=== PATIENT | male | born 1965 | race Caucasian/White ===

== ENCOUNTER 2019-01-17 10:04 | Outpatient (REF) | payer BC, SELFPAY ==
[2019-01-17 19:22] LABS: Anion Gap 10.2 mmol/L (3-11); BUN 12 mg/dL (7-18); CO2 26.8 mmol/L (21.0-32.0); CREATININE 1.02 mg/dL (0.70-1.30); Calcium 8.3 mg/dL (8.5-10.1); Calculated LDL 119 mg/dL; Chloride 104 mmol/L (98-107); Cholesterol 197 mg/dL (50-200); Glucose 84 mg/dL (70-100); HDL Cholesterol 50 mg/dL (40-60); Potassium 4.2 mmol/L (3.5-5.1); Sodium 141 mmol/L (136-145); Triglyceride 143 mg/dL (30-150)
[2019-01-20 10:19] LABS: PSA, Screening 0.5 ng/ml (0-3.5)
== END 2019-01-17 10:24 ==
LOC: NCHCN 10:04
PROVIDERS: PCP Family Medicine; Visit Provider Specialist/Technologist Athletic Trainer
DX: Z00.00 Encounter for general adult medical examination without abnormal findings (principal); Z13.228 Encounter for screening for other metabolic disorders; Z13.220 Encounter for screening for lipoid disorders; Z12.5 Encounter for screening for malignant neoplasm of prostate
CPT/HCPCS: 80048; 80061; 83721; 84153

== ENCOUNTER 2022-03-31 14:53 | Outpatient (REF) | payer BC, SELFPAY ==
[2022-03-31 16:26] LABS: ALT 25 U/L (16-63); AST 22 U/L (15-37); Albumin 3.9 g/dL (3.4-5.0); Alkaline Phosphatase 94 U/L (46-116); Anion Gap 3.2 mmol/L (3-11); BUN 11 mg/dL (7-18); Bilirubin, Total 0.6 mg/dL (0.2-1.0); CO2 31.8 mmol/L (21.0-32.0); Calcium 8.9 mg/dL (8.5-10.1); Calculated LDL 129 mg/dL (<100); Chloride 103 mmol/L (98-107); Cholesterol 219 mg/dL (<200); Estimated GFR 89.44 (mL/min/1.73m2); Glucose 84 mg/dL (74-106); HDL Cholesterol 54 mg/dL (40-60); Potassium 4.2 mmol/L (3.5-5.1); Sodium 138 mmol/L (136-145); Total Protein 7.4 g/dL (6.4-8.2); Triglyceride 183 mg/dL (<150)
[2022-03-31 22:16] LABS: PSA, Screening 0.7 ng/mL (<=3.5)
[2022-04-03 11:06] LABS: HIV-1/2 Ag & Ab Screen Negative (Negative)
[2022-04-03 11:13] LABS: Hepatitis C Ab w Rflx HCV PCR Negative (Negative)
== END 2022-03-31 14:54 | disposition home or self-care (01) ==
LOC: NCHCN 14:53
PROVIDERS: PCP Family Medicine; Visit Provider Nurse Practitioner Family
DX: Z00.00 Encounter for general adult medical examination without abnormal findings (principal); Z13.220 Encounter for screening for lipoid disorders; Z11.4 Encounter for screening for human immunodeficiency virus [HIV]; Z11.59 Encounter for screening for other viral diseases; Z12.5 Encounter for screening for malignant neoplasm of prostate; Z13.228 Encounter for screening for other metabolic disorders
CPT/HCPCS: 80053; 80061; 84153; 86803; 87389